=== PATIENT | male | born 1985 | race Caucasian/White ===

== ENCOUNTER 2022-07-09 00:22 | Emergency (ER) | payer SELFPAY ==
--- NOTE | 2022-07-09 00:55 | EDPHYS ---
Physician Documentation [facility] Name: Duy Painting Age: 36 yrs Sex: Male : 1985 Arrival Date: 07/09/2022 Time: 00:22 Bed 15 Private MD: ED Physician Prince French HPI: 07/09 04:06 This 36 yrs old Male presents to ER via Ambulatory with complaints of Rash. rt 04:06 Patient presents to the ED with 2 days of rash, he states he is unclear if it is rt psoriasis or a fungal infection. It is red. The patient denies any new exposures. Denies other acute complaints at this time. Symptoms are moderate in severity, no other aggravating or alleviating factors.. Historical: - Allergies: 00:44 No Known Allergies; pf1 - Home Meds: 00:44 None [Active]; pf1 - PMHx: 00:44 None; pf1 - PSHx: 00:44 right inguinal hernia repair; pf1 - Immunization history:: Adult Immunizations up to date, Client reports receiving the 1st dose of the Covid vaccine, Last tetanus immunization: < 5 years ago Flu vaccine is not up to date. - Social history:: Smoking status: Patient reports the use of cigarette tobacco products, smokes one-half pack cigarettes per day, Patient uses alcohol, occasionally. Patient/guardian denies using street drugs. - Family history:: not pertinent. ROS: 04:06 Constitutional: Negative for fever, chills, and weight loss, Cardiovascular: Negative rt for chest pain, palpitations, and edema, Respiratory: Negative for shortness of breath, cough, wheezing, and pleuritic chest pain, Abdomen/GI: Negative for abdominal pain, nausea, vomiting, diarrhea, and constipation, MS/Extremity: Negative for injury and deformity, Neuro: Negative for headache, weakness, numbness, tingling, and seizure, Psych: Negative for depression, anxiety, suicide ideation, homicidal ideation, and hallucinations. 04:06 Skin: Positive for rash, Itching. Exam: 04:06 Constitutional: This is a well developed, well nourished patient who is awake, alert, rt and in no acute distress. Head/Face: Normocephalic, atraumatic. ENT: Nares patent. No nasal discharge, no septal abnormalities noted. Tympanic membranes are normal and external auditory canals are clear. Oropharynx with no redness, swelling, or masses, exudates, or evidence of obstruction, uvula midline. Mucous membranes moist. Chest/axilla: Normal chest wall appearance and motion. Nontender with no deformity. No lesions are appreciated. Cardiovascular: Regular rate and rhythm with a normal S1 and S2. No gallops, murmurs, or rubs. Normal PMI, no JVD. No pulse deficits. Respiratory: Lungs have equal breath sounds bilaterally, clear to auscultation and percussion. No rales, rhonchi or wheezes noted. No increased work of breathing, no retractions or nasal flaring. Abdomen/GI: Soft, non-tender, with normal bowel sounds. No distension or tympany. No guarding or rebound. No evidence of tenderness throughout. MS/ Extremity: Pulses equal, no cyanosis. Neurovascular intact. Full, normal range of motion. 04:06 Skin: Generalized erythematous patches noted, about a centimeter in diameter. Scaly rash noted over elbows, scalp.. Vital Signs: 00:40 BP 129 / 92; Pulse 92; Resp 18; Temp 98.2; Pulse Ox 97% ; Weight 86.18 kg; Height 5 ft. pf1 11 in. ; Pain 4/10; 00:40 Body Mass Index 26.50 (86.18 kg, 180.34 cm) pf1 00:40 Pain Scale: Adult pf1 MDM: 00:47 Patient medically screened. rt 04:06 Differential diagnosis: Tinea, urticaria, psoriatic rash. Data reviewed: vital signs, rt nurses notes. Test considered but Not performed: Labs: Stable vital signs, labs not indicated. ED course: Patient's presentation is not consistent with EM, SJS, TENS. There is no mucosal involvement. Doubt immediately life-threatening rash. Does not appear to be cellulitic. Will treat with steroids and topical antifungals. Patient instructed follow-up as an outpatient. Administered Medications: No medications were administered Disposition Summary: 07/09/22 00:54 Discharge Ordered Location: Home rt Problem: new rt Symptoms: are unchanged rt Condition: Stable rt Diagnosis - Rash and other nonspecific skin eruption rt Followup: rt - With: Private Physician - When: 2 - 3 days - Reason: Discharge Instructions: - Discharge Summary Sheet rt - Rash, Adult rt Forms: - Medication Reconciliation Form rt - Thank You Letter rt - Antibiotic Education rt - Prescription Opioid Use rt Prescriptions: - Clotrimazole 1 % Topical Cream - Apply to affected area 1 application by TOPICAL route every 12 hours for 4 wks; rt 15 gram; Refills: 0, Product Selection Permitted - Prednisone 20 mg Oral Tablet - take 2 tablets by ORAL route once daily for 5 days; 10 tablet; Refills: 0, rt Product Selection Permitted Signatures: Prince French MD MD rt Kelsie Harrison RN RN pf1 Corrections: (The following items were deleted from the chart) 00:46 00:44 PSHx: None; pf1 pf1
--- NOTE | 2022-07-09 00:55 | ER ---
Nurse's Notes [facility] Name: Duy Painting Age: 36 yrs Sex: Male : 1985 Arrival Date: 07/09/2022 Time: 00:22 Bed 15 Private MD: Diagnosis: Rash and other nonspecific skin eruption Presentation: 07/09 00:43 Chief complaint: Patient states: generalized rash,onset 2 days with itching. pf1 Coronavirus screen: Vaccine status: Patient reports receiving the 1st dose of the Covid vaccine. Moderna Client denies travel out of the [place] in the last 14 days. At this time, the client does not indicate any symptoms associated with coronavirus-19. Ebola Screen: Patient negative for fever greater than or equal to 101.5 degrees Fahrenheit, and additional compatible Ebola Virus Disease symptoms. Initial Sepsis Screen: Does the patient meet any 2 criteria? No. Patient's initial sepsis screen is negative. Does the patient have a suspected source of infection? No. Patient's initial sepsis screen is negative. Risk Assessment: Do you want to hurt yourself or someone else? Patient reports no desire to harm self or others. 00:43 Method Of Arrival: Ambulatory pf1 00:43 Acuity: SUZI 4 pf1 Historical: - Allergies: 00:44 No Known Allergies; pf1 - Home Meds: 00:44 None [Active]; pf1 - PMHx: 00:44 None; pf1 - PSHx: 00:44 right inguinal hernia repair; pf1 - Immunization history:: Adult Immunizations up to date, Client reports receiving the 1st dose of the Covid vaccine, Last tetanus immunization: < 5 years ago Flu vaccine is not up to date. - Social history:: Smoking status: Patient reports the use of cigarette tobacco products, smokes one-half pack cigarettes per day, Patient uses alcohol, occasionally. Patient/guardian denies using street drugs. - Family history:: not pertinent. Screenin:52 [facility] ED Fall Risk Assessment (Adult) History of falling in the last 3 months, pf1 including since admission No falls in past 3 months (0 pts) Confusion or Disorientation No (0 pts) Intoxicated or Sedated No (0 pts) Impaired Gait No (0 pts) Mobility Assist Device Used No (0 pt) Altered Elimination No (0 pt) Score/Fall Risk Level 0 - 2 = Low Risk Oriented to surroundings, Maintained a safe environment, Educated pt \T\ family on fall prevention, incl call for assistance when getting out of bed, Assessed \T\ reinforced patient's understanding of fall precautions, Provided non-skid footwear, Hourly rounding (assess needs \T\ fall precautionary measures) done, Used ambulatory aids as needed (educated on \T\ assisted with), Used gait belt as appropriate. Abuse screen: Denies threats or abuse. Nutritional screening: No deficits noted. Tuberculosis screening: No symptoms or risk factors identified. Assessment: 00:48 General: Appears in no apparent distress. comfortable, well groomed, well developed, pf1 Behavior is calm, cooperative, appropriate for age, quiet. Neuro: No deficits noted. Level of Consciousness is awake, alert, obeys commands, Oriented to person, place, time, situation. Cardiovascular: No deficits noted. Capillary refill < 3 seconds Patient's skin is warm and dry. Respiratory: No deficits noted. Airway is patent Trachea midline Respiratory effort is even, unlabored, Respiratory pattern is regular, symmetrical. GI: No deficits noted. No signs and/or symptoms were reported involving the gastrointestinal system. : No deficits noted. No signs and/or symptoms were reported regarding the genitourinary system. EENT: No deficits noted. No signs and/or symptoms were reported regarding the EENT system. Derm: Rash noted that is itchy, red, raised, on generalizd patches. 01:16 Reassessment: Patient appears in no apparent distress at this time. Patient and/or jb4 family updated on plan of care and expected duration. Pain level reassessed. Patient is alert, oriented x 3, equal unlabored respirations, skin warm/dry/pink. Vital Signs: 00:40 BP 129 / 92; Pulse 92; Resp 18; Temp 98.2; Pulse Ox 97% ; Weight 86.18 kg; Height 5 ft. pf1 11 in. ; Pain 4/10; 00:40 Body Mass Index 26.50 (86.18 kg, 180.34 cm) pf1 00:40 Pain Scale: Adult pf1 ED Course: 00:24 Patient arrived in ED. ja2 00:24 Prince French MD is Attending Physician. rt 00:44 Triage completed. pf1 00:53 Patient has correct armband on for positive identification. Bed in low position. Call pf1 light in reach. 01:16 No provider procedures requiring assistance completed. Patient did not have IV access jb4 during this emergency room visit. Administered Medications: No medications were administered Outcome: 00:54 Discharge ordered by . rt 01:16 Discharged to home ambulatory, with friend. jb4 01:16 Condition: stable 01:16 Discharge instructions given to patient, Instructed on discharge instructions, follow up and referral plans. medication usage, Demonstrated understanding of instructions, follow-up care, medications, Prescriptions given X 2. 01:16 Patient left the ED. jb4 Signatures: Everardo Amador, RN RN jb4 Ibeth Camargo Ryan, MD MD rt Kelsie Harrison RN RN pf1 Corrections: (The following items were deleted from the chart) 00:46 00:44 PSHx: None; pf1 pf1
[2022-07-09 01:40] VITALS: BP 129/92; TEMP 98.2; O2SAT 97
== END 2022-07-09 01:16 | disposition home or self-care (01) ==
LOC: ER 00:22
DX: R21 Rash and other nonspecific skin eruption (principal)
CPT/HCPCS: 99283